=== PATIENT | male | born 1945 | race Caucasian/White ===

== ENCOUNTER 2019-11-15 17:48 | Emergency (ER) | payer MEDICAID, OTHER ==
[~2019-11-15] VITALS: Ht 175.3 cm; Wt 61.2 kg
[~2019-11-15 17:48] MED LIST: [UNRECOGNIZED DRUG - REMARK]
[2019-11-15 17:57] VITALS: BP 134/62
--- NOTE | 2019-11-15 18:06 | NUR ---
PT AMB TO BED 11.
--- NOTE | 2019-11-15 18:15 | NUR ---
PT TAKEN TO XRAY VIA WHEELCHAIR
--- NOTE | 2019-11-15 18:22 | NUR ---
PT BACK FROM XRAY
--- NOTE | 2019-11-15 18:22 | NUR ---
BIB FAMILY PT VISITED URGENT CARE TODAY, RECIEVED DX OF PNEUMONIA. PRODUCTIVE COUGH X2 WEEKS, SPUTUM REPORTS TO BE YELLOWISH/GREEN COLOR. BILATERAL LUNG BASES DIMINISHED. NO REPORTS OF CHEST PAIN OR SOB. NO RESP DISTRESS NOTED. PMH: ASTHMA, HTN, SMOKER FOR 15 YEARS BUT HAS NOT SMOKED IN 30 YEARS. GWYN
[2019-11-15 18:47] LABS: BASOPHILS # (AUTO) 0.1 K/uL (0.00-0.22); BASOPHILS % (AUTO) 0.8 % (0.0-2.0); EOSINOPHILS # (AUTO) 0.1 K/uL (0-0.4); EOSINOPHILS % (AUTO) 0.8 % (0.0-4.0); HEMATOCRIT 39.1 % (36-52); HEMOGLOBIN 12.8 g/dL (12.0-18.0); LYMPHOCYTES # (AUTO) 1.7 K/uL (2.0-11.5); MEAN CORPUSCULAR HEMOGLOBIN 30 pg (27-31); MEAN CORPUSCULAR HGB CONC 33 g/dL (33-37); MEAN CORPUSCULAR VOLUME 91.3 fL (80-94); MONOCYTES # (AUTO) 0.9 K/uL (0.8-1.0); MONOCYTES % (AUTO) 8.8 % (1.7-9.3); NEUTROPHILS # (AUTO) 7.4 K/uL (1.8-7.7); NEUTROPHILS % (AUTO) 72.6 % (42.2-75.2); PLATELET COUNT (AUTO) 450 K/uL (140-450); RED BLOOD CELL COUNT(AUTO) 4.28 MIL/uL (4.20-6.10); RED CELL DISTRIBUTION WIDTH 12.7 % (11.6-13.7); WHITE BLOOD COUNT (AUTO) 10.1 K/uL (4.8-10.8)
[2019-11-15 19:02] LABS: ANION GAP 15.9 (8-16); CARBON DIOXIDE 27.9 mmol/L (21-32); CHLORIDE 101 mmol/L (98-107); GLUCOSE 108 mg/dL (74-106); POTASSIUM 3.8 mmol/L (3.5-5.1); SODIUM SERUM 141 mmol/L (136-145); UREA NITROGEN, BLOOD 13 mg/dL (7-18)
[2019-11-15] MEDS ORDERED: PROMETH/CODEINE 6.25-10MG/5ML 5 ML UDC PO ONE (19:40)
[2019-11-15] MEDS ORDERED: LEVOFLOXACIN 500 MG TAB PO ONE (19:40)
[2019-11-15 20:18] VITALS: BP 126/60
--- NOTE | 2019-11-15 20:18 | NUR ---
Patient discharged with v/s stable. Written and verbal after care instructions given and explained. Patient alert, oriented and verbalized understanding of instructions. Ambulatory with steady gait. All questions addressed prior to discharge. ID band removed. Patient advised to follow up with PMD. Rx of levaquin, albuterol, promethazine with codeine given. Patient educated on indication of medication including possible reaction and side effects. Opportunity to ask questions provided and answered.
== END 2019-11-15 20:18 | disposition home or self-care (01) ==
LOC: MED 17:48
DX: J44.9 Chronic obstructive pulmonary disease, unspecified (principal); J20.9 Acute bronchitis, unspecified; J45.909 Unspecified asthma, uncomplicated; I10 Essential (primary) hypertension; E78.00 Pure hypercholesterolemia, unspecified; Z87.891 Personal history of nicotine dependence
CPT/HCPCS: 36415; 71046; 80048; 85025; 87804; 99284

== ENCOUNTER 2021-08-06 05:33 | Emergency (ER) | payer OTHER ==
[~2021-08-06] VITALS: Ht 177.8 cm; Wt 61.9 kg
[2021-08-06 05:45] VITALS: BP 198/102
--- NOTE | 2021-08-06 05:45 | NUR ---
TO BED AMBULATORY
--- NOTE | 2021-08-06 06:10 | NUR ---
76 YO/M BIB SELF W C/O DIZZYNESS AND VOMITING X4 MONTHS AGO AND WAS SEEN AT [facility] AND DIAGNOSED W VERTIGO. PATIENT HERE TODAY D/T ONGOING DIZZYNESS AND NAUSEA. PATIENT REPORTS ROOM SPINS WHEN HE LAYS DOWN OR STANDS UP. PATIENT DENIES ANY VOMITING. PATIENT ALSO REPORTS HIGH BLOOD PRESSURE. PATIENT DENIES ANY PAIN, HEADACHE, LOC OR BLURRY VISION. PATIENT SITTING IN BED LOCKED IN LOWEST POSITION W X1 SIDERAIL UP. HOB ELEVATED. PATIENT CONNECTED TO MONITOR W VSS, BP @ 180/95, ERMD AWARE. NAD NOTED, WILL CONTINUE TO MONITOR. PMH:HTN, ASTHMA NKA
[2021-08-06 06:48] LABS: BASOPHILS # (AUTO) 0.1 K/uL (0.00-0.22); BASOPHILS % (AUTO) 0.9 % (0.0-2.0); EOSINOPHILS # (AUTO) 0.1 K/uL (0-0.4); EOSINOPHILS % (AUTO) 2.5 % (0.0-4.0); HEMATOCRIT 37.8 % (36-52); HEMOGLOBIN 12.6 g/dL (12.0-18.0); LYMPHOCYTES # (AUTO) 2.3 K/uL (2.0-11.5); LYMPHOCYTES % (AUTO) 39.6 % (20.5-51.1); MEAN CORPUSCULAR HEMOGLOBIN 30 pg (27-31); MEAN CORPUSCULAR HGB CONC 33 g/dL (33-37); MEAN CORPUSCULAR VOLUME 90.5 fL (80-94); MONOCYTES # (AUTO) 0.5 K/uL (0.8-1.0); MONOCYTES % (AUTO) 7.9 % (1.7-9.3); NEUTROPHILS # (AUTO) 2.8 K/uL (1.8-7.7); NEUTROPHILS % (AUTO) 49.1 % (42.2-75.2); PLATELET COUNT (AUTO) 228 K/uL (140-450); RED BLOOD CELL COUNT(AUTO) 4.18 MIL/uL (4.20-6.10); RED CELL DISTRIBUTION WIDTH 13.3 % (11.6-13.7); WHITE BLOOD COUNT (AUTO) 5.8 K/uL (4.8-10.8)
[2021-08-06 07:02] LABS: PROTHROMBIN TIME 9.3 secs (10.8-13.4)
[2021-08-06 07:04] LABS: ALBUMIN 3.6 g/dL (3.4-5.0); ANION GAP 11.9 (8-16); ASPARTATE AMINOTRANSFERASE 19 U/L (15-37); CARBON DIOXIDE 26.1 mmol/L (21-32); CHLORIDE 106 mmol/L (98-107); CREATININE 0.9 mg/dL (0.6-1.3); GLUCOSE 96 mg/dL (74-106); SODIUM SERUM 140 mmol/L (136-145); TOTAL BILIRUBIN 0.2 mg/dL (0.0-1.0); UREA NITROGEN, BLOOD 12 mg/dL (7-18)
--- NOTE | 2021-08-06 07:16 | NUR ---
Pt report given to JUANITA MCRAE. Transfer of care at this time.
--- NOTE | 2021-08-06 07:16 | NUR ---
Report and continuation of care received from JUANITA Levy.
[2021-08-06] MEDS ORDERED: NACL 0.9% 500 ML IV SCH (09:15)
--- NOTE | 2021-08-06 09:15 | NUR ---
CONSENT FORM SIGNED FOR CT
--- NOTE | 2021-08-06 09:29 | NUR ---
PATIENT TRANSPORTED TO CT BY WHEELCHAIR
--- NOTE | 2021-08-06 09:42 | NUR ---
PT RETURNED FROM CT, PLACED ONTO IVF
--- NOTE | 2021-08-06 09:58 | NUR ---
LAB AT BEDSIDE
[2021-08-06 11:48] VITALS: BP 147/79
== END 2021-08-06 11:49 | disposition home or self-care (01) ==
LOC: MED 05:33
DX: I10 Essential (primary) hypertension (principal); R42 Dizziness and giddiness; J45.909 Unspecified asthma, uncomplicated
CPT/HCPCS: 36415; 70450; 71045; 71275; 74174; 80053; 84484; 85025; 85379; 85610; 85730; 93005; 96360; 96361; 99291; J7030; Q0092; Q9967